=== PATIENT | female | born 1990 | race Caucasian/White ===

== ENCOUNTER 2018-08-07 14:25 | Inpatient (IN) | payer OTHER ==
--- NOTE | 2018-08-07 07:28 | PDOC.LDHP ---
Labor and Delivery H&P Chief complaint: scheduled induction Current gestational age (weeks): 39 Dating criteria: last menstrual period Grav: 1 Para: 0 Current complications: gestational hypertension Abnormal US findings: No Past Medical History: negative Previous surgical history: none Social history: none - OB Labs Blood type: O RH: positive Antibody Screen: negative HIV: negative RPR: negative HEPSAg: negative 1 hour GCT: negative GBS: negative Urine drug screen: negative Rubella: non-immune - Assessment L&D Assessment: medically indicated induction - Plan Plan: admit to L&D, cervical ripening, labor augmentation if indicated (Labor induction at 39 5/7 weeks for mild gestational hypertension. Blood pressures in office 140/90-92..)
[2018-08-07] MEDS ORDERED: Ondansetron PF 4 MG/2 ML Vial IVP PRN (16:52)
[2018-08-07] MEDS ORDERED: Lidocaine 1% (PF) 30 ML VIAL SC PRN (16:52)
[2018-08-07] MEDS ORDERED: NS w/ Oxytocin 10 units 500 ML IV SCH (16:52)
[2018-08-07] MEDS ORDERED: Acetaminophen 500 MG TAB PO PRN (16:52)
[2018-08-07] MEDS ORDERED: Butorphanol Tartrate 1 MG/ML VIAL SLOW IVP PRN (16:52)
[2018-08-07] MEDS ORDERED: Ibuprofen 800 MG TAB PO PRN (16:52)
[2018-08-07] MEDS ORDERED: HYDROcodone/Acetaminophen 5/325 mg Tablet PO PRN (16:52)
[2018-08-07] MEDS ORDERED: Promethazine HCl 25 MG/ML VIAL IM PRN (16:52)
[2018-08-07] MEDS ORDERED: NS / Oxytocin 40 units/1000ml 1,000 ML IV PRN (16:52)
[2018-08-07] MEDS ORDERED: Zolpidem Tartrate 5 MG TAB PO PRN (16:52)
[2018-08-07] MEDS: Lactated Ringer's 1,000 ML IV SCH (16:55)
[2018-08-07 17:04] LABS: Hemoglobin 13.3 g/dL (12.0-16.0); Mean Corpuscular HGB CONC 34.5 g/dL (32.0-36.0); Mean Corpuscular Hemoglobin 31.7 pg (27.0-31.0); Mean Platelet Volume 8.3 fL (7.4-10.4); Platelet Count 236 thou/uL (130-400); RBC Distribution Width 12.4 % (11.5-14.5); Red Blood Cell (RBC) Count 4.19 mill/uL (4.20-5.40); White Blood Cell (WBC) Count 8.4 thou/uL (4.8-10.8)
[2018-08-07 17:09] VITALS: BMI 36.9
[2018-08-07 17:30] LABS: ALT (SGPT) 15 U/L (8-55); AST (SGOT) 21 U/L (5-34); Albumin 3.4 g/dL (3.5-5.0); Alkaline Phosphatase 166 U/L (40-150); Anion Gap 14 mmol/L (10-20); BUN (Urea Nitrogen) 12 mg/dL (7.0-18.7); Bilirubin, Total 0.2 mg/dL (0.2-1.2); Calc. Creatinine Clearance 181 mL/min (70-130); Calcium 9.2 mg/dL (7.8-10.44); Carbon Dioxide 21 mmol/L (22-29); Chloride 107 mmol/L (98-107); Estimated GFR-MDRD Greater than 90; Globulin 2.8 g/dL (2.4-3.5); Glucose 82 mg/dL (70-105); Potassium 4.1 mmol/L (3.5-5.1); Protein, Total 6.2 g/dL (6.0-8.3); Sodium 138 mmol/L (136-145)
[2018-08-07 17:46] LABS: HBSAg Index 0.22 S/CO (0-0.99); Hep B Surf Ag Non-Reactive S/CO (NonReactive)
[2018-08-07] MEDS: Misoprostol 100 MCG TAB VAG SCH (17:53)
[2018-08-07 18:01] LABS: Syphilis Antibody Nonreactive (Nonreactive); Syphilis Antibody Index 0.05 S/CO (<1.00 Non-Reactive)
[2018-08-07 18:13] LABS: Bilirubin Negative (Negative); Blood, Urine Negative (Negative); Clarity CLEAR (Clear); Glucose, Urine (Dipstick) Negative (Negative); Leukocyte Negative (Negative); Nitrite Negative (Negative); Protein, Urine (Dipstick) Negative (Neg-Trace); Specific Gravity, Urine 1.023 (1.002-1.036); Urobilinogen 0.2 mg/dL (0.2-1.0); pH, Urine 5.5 (5.0-9.0)
[2018-08-07 18:15] LABS: Bacteria/HPF None Seen HPF (None Seen); Hyaline Casts/LPF 0-3 HYALINE CAST LPF (0-3 Hyaline); Pathc Cast-AUWi Flag 0.54 (0-2.49); RBC/HPF 0-3 HPF (0-3); Squamous Epithelial 0-3 HPF (0-3); WBC/HPF 0-3 HPF (0-3)
[2018-08-08] MEDS ORDERED: Fentanyl 4 mcg/Bup 0.1% Cadd 100 ML ONE (00:50)
[2018-08-08] MEDS: Lactated Ringer's 1,000 ML IV SCH ×3 (00:58→21:19)
[2018-08-08] MEDS ORDERED: Naloxone HCl 0.4 mg/ml Vial IVP PRN ×6 (01:30→15:46)
[2018-08-08] MEDS ORDERED: Eucerin (Mineral Oil/Petrolatum,White) 30 gm Jar TOP PRN ×3 (01:30→15:46)
[2018-08-08] MEDS ORDERED: Communication Order-Pharmacy FS SCH ×3 (01:30→16:00)
[2018-08-08] MEDS ORDERED: Lactated Ringer's 500 ML IV PRN (01:30)
[2018-08-08] MEDS ORDERED: ePHEDrine/0.9% NaCl/PF SYRINGE 50 mg/10 ml SLOW IVP PRN (01:30)
[2018-08-08] MEDS ORDERED: Ondansetron PF 4 MG/2 ML Vial IVP PRN ×3 (01:30→15:46)
[2018-08-08] MEDS ORDERED: Fentanyl 4 mcg/Bupivacaine 0.1% Cassette 100 ML EPIDURAL SCH (01:30)
[2018-08-08] MEDS ORDERED: Promethazine HCl 25 MG/ML VIAL IM PRN ×3 (01:30→15:46)
[2018-08-08] MEDS ORDERED: Acetaminophen 325 MG TAB PO PRN ×2 (01:30→06:13)
[2018-08-08] MEDS ORDERED: diphenhydrAMINE 50 MG/ML VIAL IVP PRN ×3 (01:30→15:46)
[2018-08-08] MEDS ORDERED: Bicitra 30 ML UDCUP ONE (04:46)
[2018-08-08] MEDS ORDERED: Oxytocin 10 UNITS/ML VIAL ONE (05:19)
[2018-08-08] MEDS ORDERED: Lidocaine 2% 10 ML INJ ONE (05:19)
[2018-08-08] MEDS ORDERED: MORPHINE 5 MG/10 ML PF VIAL ONE (05:21)
[2018-08-08] MEDS ORDERED: ePHEDrine/0.9% NaCl/PF SYRINGE 50 mg/10 ml ONE ×2 (05:23→11:11)
[2018-08-08] MEDS ORDERED: HYDROmorphone 2 MG/ML VIAL SLOW IVP PRN (06:11)
[2018-08-08] MEDS ORDERED: Naloxone HCl 0.4 mg/ml Vial IV PRN ×2 (06:11→15:46)
[2018-08-08] MEDS ORDERED: L&D-Morphine 4 MG/ML VIAL SLOW IVP PRN (06:11)
[2018-08-08] MEDS ORDERED: Meperidine HCl/PF 25 MG/ML VIAL SLOW IVP PRN (06:11)
[2018-08-08] MEDS ORDERED: Ondansetron HCl/PF 4 MG/2 ML Vial IVP PRN (06:11)
[2018-08-08] MEDS ORDERED: Promethazine HCl 25 MG SUPP PR PRN ×2 (06:11→15:46)
[2018-08-08] MEDS ORDERED: Ketorolac Tromethamine 30 MG/ML VIAL IVP PRN ×2 (06:11→15:46)
--- NOTE | 2018-08-08 06:11 | PDOC.OPDEL ---
OB Operative/Delivery Note Delivery Dr/Surgeon: Rebecca Assist: Tenisha Pre-Delivery Diagnosis: breech, medically indicated induction Procedure/Post Delivery Dx: primary low transverse CS Weeks gestation: 39 Anesthesia: epidural - Findings A Sex: male Weight: 7 lb 2 oz - 1 min: 9 - 5 min: 9 - Additional Findings/Plan Placenta delivered: manual removal findings: low transverse hysterotomy without extension, normal uterus, normal tubes, normal ovaries Estimated blood loss: 500ml Post delivery plan: routine recovery
[2018-08-08] MEDS ORDERED: Simethicone Chewable 80 MG TAB PO PRN (06:13)
[2018-08-08] MEDS ORDERED: Misoprostol 200 MCG TAB PR PRN (06:13)
[2018-08-08] MEDS ORDERED: HYDROcodone/Acetaminophen 5/325 mg Tablet PO PRN (06:13)
[2018-08-08] MEDS ORDERED: Lanolin Ointment 7 GM TUBE TOP PRN (06:13)
[2018-08-08] MEDS ORDERED: Adacel (T-DAP) 0.5 ML SYRINGE IM ONE (06:13)
[2018-08-08] MEDS ORDERED: diphenhydrAMINE 25 MG CAP PO PRN (06:13)
[2018-08-08] MEDS ORDERED: Ketorolac Tromethamine 30 MG/ML VIAL IVP SCH (06:15)
[2018-08-08] MEDS ORDERED: NS / Oxytocin 40 units/1000ml 1,000 ML IV SCH (06:15)
--- NOTE | 2018-08-08 10:11 | OP ---
DATE OF PROCEDURE: 08/08/2018 PREOPERATIVE DIAGNOSES: 1. A 28-year-old white female, G1, P0, at 39 to 40 weeks gestation. 2. Mild gestational hypertension. 3. Ongoing labor induction. 4. Intrapartum conversion from cephalic to breech presentation at 9 cm. POSTOPERATIVE DIAGNOSES: 1. A 28-year-old white female, G1, P0, at 39 to 40 weeks gestation. 2. Mild gestational hypertension. 3. Ongoing labor induction. 4. Intrapartum conversion from cephalic to breech presentation at 9 cm. 5. Delivered via section. PROCEDURE PERFORMED: Primary low transverse section without extension. PHYSIOTHERAPY ASSISTANT SURGEON: My albert CROWE. ANESTHESIA: Epidural. EBL: 615 mL. COMPLICATIONS: None. COUNTS: Correct x2. ANTIBIOTICS: 2 g Ancef, on-call to OR. FINDINGS: 1. Male infant otto breech presentation Apgars were 9 and 9. 2. Normal fallopian tubes, ovaries, and uterus. DISPOSITION: Recovery room, stable. DESCRIPTION OF OPERATIVE PROCEDURE: The patient had received informed consent in regard to the surgery. She had an amniotomy at approximately 2345 hours at 2 cm and was noted to be vertex on exam with clear fluid flowing. She had given Cytotec and she progressed on with Cytotec without Pitocin and had received an epidural for pain management. With her next vaginal exam by the labor delivery nurse at approximately 0430 hours, she was noted to be 9 cm and completely effaced, +1 station with a buttocks presentation. The abdominal heart rate monitors were also in different position than previous being in the low area. The abdomen now up in the upper abdomen consistent with a breech intrapartum conversion. I was notified and we called and notified and I presented to the LDR room, where anesthesia was notified. Also, we took the patient back to the operating room. Epidural was adequately dosed and we proceeded with a section. She had been prepped and draped and a Pfannenstiel incision was made in the lower abdomen was carried down the fascia. Fascia was nicked in midline. Fascial incision extended bilaterally using curved Chávez scissors. The rectus fascia was then dissected superiorly and inferiorly off the rectus muscle bellies. The rectus muscle was divided in midline. Peritoneal cavity was entered. Barrett O retractor was placed in usual fashion. A bladder flap was created in usual fashion and then a 2 cm hysterotomy incision was made in the lower uterine segment. This was extended via finger fractionation. The baby's buttocks were easily delivered through the hysterotomy incision followed by each leg atraumatically, corkscrew technique delivered each arm atraumatically and my bankruptcy legal assistant had continued pressure externally keeping the head flexed and the baby's head delivered very easily. The mouth and nares of the baby were suctioned on the abdomen. The cord was doubly clamped and cut and the baby was handed to the pediatric team in attendance. The usual cord blood was obtained. The placenta was manually extracted. Hysterotomy incision was then closed in double-layer closure with #1 Monocryl suture in locking fashion with good hemostasis. The uterus returned back in the abdomen. The pelvis was suctioned and irrigated. Hemostasis along the hysterotomy site was confirmed. The Barrett O retractor was removed. Again, the hysterotomy and pelvis was inspected, noted to be hemostatic. The rectus muscle bellies were noted to be hemostatic prior to fascial closure. The fascia was closed with 0 PDS x2 in a running continuous fashion. Subcutaneous tissue was irrigated and noted to be hemostatic prior to skin closure with a 4-0 subcuticular running Monocryl suture. Surgery was terminated. No anesthetic or surgical complications occurred. Job ID: [id number]
[2018-08-08] MEDS ORDERED: Bupivacaine 0.25% HCL 30 ML VIAL ONE (11:11)
[2018-08-08] MEDS ORDERED: ePHEDrine 50 MG/ML VIAL ONE (14:44)
[2018-08-08] MEDS: Ferrous Sulfate 325 MG TAB PO SCH (16:06)
[2018-08-08] MEDS: Docusate Calcium (SURFAK) 240 MG CAP PO SCH (16:06)
[2018-08-08] MEDS: Prenatal Vitamin 1 TAB PO SCH (16:07)
[2018-08-08] MEDS: Misoprostol 100 MCG TAB VAG SCH (16:07)
[2018-08-08] MEDS: Ibuprofen 800 MG TAB PO SCH (17:42)
[2018-08-09 04:25] LABS: Hemoglobin 11.5 g/dL (12.0-16.0); Mean Corpuscular HGB CONC 33.2 g/dL (32.0-36.0); Mean Corpuscular Hemoglobin 31.2 pg (27.0-31.0); Platelet Count 186 thou/uL (130-400); RBC Distribution Width 12.5 % (11.5-14.5); Red Blood Cell (RBC) Count 3.69 mill/uL (4.20-5.40); White Blood Cell (WBC) Count 11.9 thou/uL (4.8-10.8)
[2018-08-09] MEDS: Ibuprofen 800 MG TAB PO SCH ×4 (04:47→22:18)
[2018-08-09] MEDS: Docusate Calcium (SURFAK) 240 MG CAP PO SCH ×3 (04:47→22:18)
[2018-08-09] MEDS: Ferrous Sulfate 325 MG TAB PO SCH ×3 (04:47→22:18)
--- NOTE | 2018-08-09 07:49 | PDOC.PP ---
Post Progress Note Post Day #: 1 Subjective: 28 yo ->1 post op day 1 s/p pLTCS 2/2 breech presentation. Pt reports her pain is well controlled. Tolerating po, ambulating, well and medina removed. She has no complaints. Denies incisional pain, cp, sob, NVDC. PO intake tolerated: yes Flatus: yes Ambulation: yes Vital Signs (12 hours) Temp Pulse Resp BP Pulse Ox 08/09/18 02:00 98.3 F 77 17 105/61 08/08/18 20:00 99.0 F 99 18 111/65 98 Weight Weight 103.873 kg - Physical Examination General: NAD Cardiovascular: no m/r/g, RRR Respiratory: clear to auscultation bilaterally, non-labored breathing Abdominal: + bowel sounds, lochia, no distention, appropriately TTP Extremities: negative homans (B) Neurological: no gross focal deficits Psychiatric: normal affect Result Diagrams: 08/09/18 04:16 08/07/18 16:55 Additional Labs: Post Labs Blood Type O POSITIVE 08/07/18 16:55 Hep Bs Antigen Non-Reactive S/CO (NonReactive) 08/07/18 16:55 (1) Status post primary low transverse section Code(s): Z98.891 - HISTORY OF UTERINE SCAR FROM PREVIOUS SURGERY Status: Acute - Assessment/Plan 1) s/p pLTCS - pt doing well, ambulating, tolerating PO - primip, cont to monitor and possible dc home tomorrow
[2018-08-09] MEDS: Prenatal Vitamin 1 TAB PO SCH (09:52)
[2018-08-10] MEDS: Ibuprofen 800 MG TAB PO SCH ×2 (06:27→09:34)
[2018-08-10] MEDS: Ferrous Sulfate 325 MG TAB PO SCH (07:43)
[2018-08-10 07:48] VITALS: BP 111/72; TEMP 97.8
--- NOTE | 2018-08-10 07:48 | PDOC.PP ---
Post Progress Note Post Day #: 2 Subjective: Ready to go home. Doing well. PO intake tolerated: yes Flatus: yes Ambulation: yes Vital Signs (12 hours) Pulse Ox 08/09/18 20:00 99 Weight Weight 229 lb - Physical Examination Abdominal: + bowel sounds, lochia, no distention, appropriately TTP Result Diagrams: 08/09/18 04:16 08/07/18 16:55 Additional Labs: Post Labs Blood Type O POSITIVE 08/07/18 16:55 Hep Bs Antigen Non-Reactive S/CO (NonReactive) 08/07/18 16:55 - Assessment/Plan Post op day #2. Doing well. Discharge home. F/u in 6 weeks.
[2018-08-10] MEDS: Docusate Calcium (SURFAK) 240 MG CAP PO SCH (09:32)
[2018-08-10] MEDS: Prenatal Vitamin 1 TAB PO SCH (09:32)
== END 2018-08-10 15:30 | disposition home or self-care (01) | DRG 788 ==
LOC: L&D 16:04 → 3SW 08-08 15:14 → EDSTATUS 08-09 14:24
PROVIDERS: ADMIT Obstetrics & Gynecology; ATTEND Obstetrics & Gynecology
PROC: 10D00Z1 Extraction of Products of Conception, Low, Open Approach (ICD-10-PCS; principal; 2018-08-08)
DX: O13.4 Gestational [pregnancy-induced] hypertension without significant proteinuria, complicating childbirth (principal); Z3A.39 39 weeks gestation of pregnancy; Z37.0 Single live birth; O32.1XX0 Maternal care for breech presentation, not applicable or unspecified
CPT/HCPCS: 36415; 51702; 80053; 81001; 85027; 86780; 86850; 86900; 86901; 87340; J1885; J2001; J2270; J2590; J3490; S0020